=== PATIENT | male | born 1990 | race Two or more races ===

== ENCOUNTER 2019-12-17 04:43 | Emergency (ER) | payer SELFPAY ==
[~2019-12-17] VITALS: Ht 165.1 cm; Wt 106.1 kg
--- NOTE | 2019-12-17 04:58 | NUR ---
PATIENT CAME TO ER BED 9 C/O HIGH BLOOD PRESSURE. PATIENT STATES THAT HE TOOK HIS BLOOD PRESSURE AND NOTICED THAT IT WAS 150S /100S, AND CALLED 911. PATIENT TOOK METOPROLOL AND STATES IT FELT BETTER. PATIENT RETOOK HIS BLOOD PRESSURE AND NOTICED THAT HIS BLOOD PRESSURE WAS ELEVATED AGAIN AND CAME TO ER. AAOX4. NO SOB. BREATHING EVENLY AND UNLABORED ON ROOM AIR. CONNECTED TO MONITOR.
[2019-12-17 05:20] VITALS: BP 135/86
--- NOTE | 2019-12-17 05:27 | NUR ---
Patient discharged to home in stable condition. Written and verbal after care instructions given. Patient verbalizes understanding of instruction.
== END 2019-12-17 05:28 | disposition home or self-care (01) ==
LOC: ER 04:45
DX: F41.9 Anxiety disorder, unspecified (principal); R00.0 Tachycardia, unspecified